=== PATIENT | male | born 1970 | race African-American/Black ===

== ENCOUNTER 2020-06-11 03:21 | Emergency (ER) | payer OTHER ==
[~2020-06-11] VITALS: Ht 180.3 cm; Wt 83.9 kg
[2020-06-11] MEDS ORDERED: TRAMADOL 50 MG50 MG PO (03:54)
[2020-06-11] MEDS ORDERED: CLINDAMYCIN HC300 MG PO (03:54)
[2020-06-11] MEDS ORDERED: NAPROSYN500 MG PO (03:54)
[2020-06-11 05:34] VITALS: BP 162/105
== END 2020-06-11 04:40 | disposition home or self-care (01) ==
LOC: ER 03:21
DX: L03.116 Cellulitis of left lower limb (principal); I10 Essential (primary) hypertension; E78.00 Pure hypercholesterolemia, unspecified; W57.XXXA Bitten or stung by nonvenomous insect and other nonvenomous arthropods, initial encounter; Y93.89 Activity, other specified; Y92.89 Other specified places as the place of occurrence of the external cause; Y99.8 Other external cause status